=== PATIENT | female | born 1960 | race Two or more races ===

== ENCOUNTER 2018-12-24 10:04 | Outpatient (CLI) | payer OTHER ==
[~2018-12-24 10:04] MED LIST: CIPRO500 MG/5 M PO; FLAGYL500MG PO; INTESTINEX1 CA1 PO; ZANTAC150 MG PO
== END 2018-12-24 10:09 | disposition home or self-care (01) ==
LOC: SONOGRAMA 10:04
DX: E04.1 Nontoxic single thyroid nodule (principal)

== ENCOUNTER 2019-01-12 10:44 | Emergency (ER) | payer OTHER ==
[~2019-01-12] VITALS: Ht 160 cm; Wt 95.3 kg
== END 2019-01-12 14:51 | disposition home or self-care (01) ==
LOC: ER 10:44
DX: M75.51 Bursitis of right shoulder (principal)

== ENCOUNTER 2019-11-11 14:13 | Emergency (ER) | payer OTHER ==
[~2019-11-11] VITALS: Ht 160 cm; Wt 96.6 kg
== END 2019-11-11 18:54 | disposition home or self-care (01) ==
LOC: ER 14:13
DX: T17.228A Food in pharynx causing other injury, initial encounter (principal); M79.5 Residual foreign body in soft tissue; X58.XXXA Exposure to other specified factors, initial encounter; Y93.89 Activity, other specified; Y92.89 Other specified places as the place of occurrence of the external cause; Y99.8 Other external cause status

== ENCOUNTER 2020-03-01 09:45 | Day surgery (SDC) | payer OTHER | END 2020-03-01 15:47 | disposition home or self-care (01) | LOC: AMB-ENDOS 09:45 | PROVIDERS: ATTEND Surgery | DX: K57.32 Diverticulitis of large intestine without perforation or abscess without bleeding (principal); Z20.828 Contact with and (suspected) exposure to other viral communicable diseases ==

== ENCOUNTER → 2020-05-15 | Outpatient (CLI) | payer OTHER | END | disposition home or self-care (01) | LOC: OFIC 805 11:13 | PROVIDERS: ATTEND Otolaryngology Otology & Neurotology | DX: J02.8 Acute pharyngitis due to other specified organisms (principal); T17.298A Other foreign object in pharynx causing other injury, initial encounter; R42 Dizziness and giddiness ==

== ENCOUNTER 2020-12-17 07:20 | Outpatient (CLI) | payer OTHER | END 2020-12-17 07:22 | disposition home or self-care (01) | LOC: TOM 07:20 | PROVIDERS: ATTEND Surgery | DX: K57.32 Diverticulitis of large intestine without perforation or abscess without bleeding (principal); R10.32 Left lower quadrant pain; K56.600 Partial intestinal obstruction, unspecified as to cause ==

== ENCOUNTER 2022-07-31 08:29 | Outpatient (CLI) | payer OTHER | END 2022-07-31 08:32 | disposition home or self-care (01) | LOC: SONOGRAMA 08:29 | PROVIDERS: ATTEND Pathology Anatomic Pathology & Clinical Pathology | DX: D34 Benign neoplasm of thyroid gland (principal); E04.9 Nontoxic goiter, unspecified; R59.1 Generalized enlarged lymph nodes; R22.1 Localized swelling, mass and lump, neck; E04.2 Nontoxic multinodular goiter; D36.0 Benign neoplasm of lymph nodes ==

== ENCOUNTER 2023-08-23 04:59 | Inpatient (IN) | payer OTHER ==
[~2023-08-23] VITALS: Ht 160 cm; Wt 99.8 kg
[2023-08-23] MEDS ORDERED: ATACAND16 MG PO (05:06)
[2023-08-23] MEDS ORDERED: PROMETHAZINE HCL 50 MG/ML AMPUL IM STA (06:36)
[2023-08-23] MEDS ORDERED: KETOROLAC TROMETHAMINE 30 MG VIAL IV STA (06:37)
[2023-08-23] MEDS ORDERED: SODIUM CHLORIDE 0.45 % 1,000 ML IV ONE (06:45)
[2023-08-23 07:57] LABS: PARTIAL THROMBOPLASTIN TIME 27.6 SECONDS (22.0-34.0); PROTHROMBIN TIME 10.5 SECONDS (9.0-11.5)
[2023-08-23 08:07] LABS: HEMATOCRIT 40.8 % (36.0-45.00); MEAN CELL VOLUME 87.9 fL (80.00-100.00); MEAN CORPUSCULAR HEMOGLOBIN 30.3 pg (27.00-32.0); MEAN CORPUSCULAR HGB CONC 34.4 g/dl (32.0-36.0); PLATELET COUNT 283 K/uL (150-450); RED BLOOD COUNT 4.64 M/uL (4.00-6.00)
[2023-08-23 08:31] LABS: BILIRUBIN TOTAL 0.48 mg/dL (0.3-1.2); CALCIUM 9.5 mg/dL (8.5-10.1); CREATININE SERUM 1.32 mg/dL (0.55-1.02); GFR 40.65; GLOBULINA 4.5 G/DL (2.4-3.5); POTASSIUM 4.41 mEq/L (3.5-5.1); TOTAL PROTEIN 8.5 gm/dL (6.4-8.2)
[2023-08-23 09:31] LABS: URINE APPEARANCE Clear; URINE BILIRRUBIN Negative (NEGATIVE); URINE BLOOD Large; URINE COLOR Orange; URINE GLUCOSE Negative (NEGATIVE); URINE LEUKOCYTE Negative; URINE NITRATE Negative; URINE PROTEIN Trace (NEGATIVE); URINE UROBILINOGEN 0.2 E.U./dl
[2023-08-23 09:35] LABS: URINE BACTERIA 40.3 uL (0.0-1933); URINE EPITHELIAL CELLS 4.3 uL (0.0-38.8); URINE RBC 626.1 uL (0.0-20.8); URINE WBC 15.1 uL (0.0-23.2)
[2023-08-23] MEDS ORDERED: CEFTRIAXONE SODIUM 2,000 MG in 0.9 % SODIUM CHLORIDE 100 ML IV SCH (14:44)
[2023-08-23] MEDS ORDERED: FAMOTIDINE/PF 20 MG/2 ML VIAL IV SCH (14:45)
[2023-08-23] MEDS ORDERED: ACETAMINOPHEN 325 MG TABLET PO ONE (14:45)
[2023-08-23] MEDS ORDERED: ONDANSETRON HCL 4 MG in 0.9 % SODIUM CHLORIDE 50 ML IV PRN (14:45)
[2023-08-23] MEDS ORDERED: ACETAMINOPHEN 325 MG TABLET PO PRN (15:00)
[2023-08-23] MEDS ORDERED: 0.9 % SODIUM CHLORIDE 1,000 ML IV SCH (15:00)
[2023-08-23 15:36] LABS: INR 1.03; PARTIAL THROMBOPLASTIN TIME 28.2 SECONDS (22.0-34.0); PROTHROMBIN TIME 10.8 SECONDS (9.0-11.5)
[2023-08-24] MEDS ORDERED: CANDESARTAN CILEXETIL 16 MG TABLET PO SCH ×2 (11:00→11:32)
[2023-08-25 08:05] LABS: HEMATOCRIT 35.3 % (36.0-45.00); HEMOGLOBIN 11.9 g/dL (12.0-15.00); MEAN CORPUSCULAR HEMOGLOBIN 29.7 pg (27.00-32.0); MEAN CORPUSCULAR HGB CONC 33.7 g/dl (32.0-36.0); PLATELET COUNT 213 K/uL (150-450); RED BLOOD COUNT 4.01 M/uL (4.00-6.00); RED CELL DISTRIBUTION WIDTH 13.3 % (11.5-14.5)
[2023-08-25 08:13] LABS: ALBUMIN 3.1 gm/dL (3.4-5.0); BILIRUBIN TOTAL 0.43 mg/dL (0.3-1.2); CALCIUM 8.7 mg/dL (8.5-10.1); CREATININE SERUM 0.77 mg/dL (0.55-1.02); GFR 75.71; GLOBULINA 3.3 G/DL (2.4-3.5); POTASSIUM 4.45 mEq/L (3.5-5.1); TOTAL PROTEIN 6.4 gm/dL (6.4-8.2)
== END 2023-08-25 15:05 | disposition home or self-care (01) | DRG 690 ==
LOC: ER 04:59 → MEDI 14:59
PROVIDERS: General Practice; Student in an Organized Health Care Education/Training Program; ADMIT Internal Medicine; ATTEND Internal Medicine
PROC: BW21ZZZ Computerized Tomography (CT Scan) of Abdomen and Pelvis (ICD-10-PCS; principal; 2023-08-23)
DX: N39.0 Urinary tract infection, site not specified (principal); N20.0 Calculus of kidney; D72.828 Other elevated white blood cell count

== ENCOUNTER 2023-12-22 11:57 | Emergency (ER) | payer OTHER ==
[~2023-12-22] VITALS: Ht 160 cm; Wt 97.5 kg
[~2023-12-22 11:57] MED LIST changes: +ATACAND16 MG PO
[2023-12-22 13:10] LABS: PH,URINE 5.5 (5.0-8.0); URINE APPEARANCE Error; URINE BILIRRUBIN Small (NEGATIVE); URINE BLOOD Large; URINE COLOR Dark Yellow; URINE GLUCOSE Negative (NEGATIVE); URINE LEUKOCYTE Small; URINE NITRATE Negative
[2023-12-22 13:13] LABS: URINE BACTERIA 154.9 uL (0.0-1933); URINE EPITHELIAL CELLS 18.3 uL (0.0-38.8); URINE WBC 49.6 uL (0.0-23.2)
[2023-12-22 13:30] LABS: URINE PROTEIN 100 (NEGATIVE); URINE RBC > 10558.9 uL (0.0-20.8)
[2023-12-22 13:32] LABS: HEMATOCRIT 41.3 % (36.0-45.00); MEAN CELL VOLUME 87.5 fL (80.00-100.00); MEAN CORPUSCULAR HEMOGLOBIN 29.7 pg (27.00-32.0); MEAN CORPUSCULAR HGB CONC 33.9 g/dl (32.0-36.0); PLATELET COUNT 289 K/uL (150-450); RED BLOOD COUNT 4.72 M/uL (4.00-6.00); RED CELL DISTRIBUTION WIDTH 13.7 % (11.5-14.5)
[2023-12-22 13:45] LABS: CALCIUM 10.1 mg/dL (8.5-10.1); CREATININE SERUM 0.93 mg/dL (0.55-1.02); GFR 60.69
== END 2023-12-22 16:40 | disposition home or self-care (01) ==
LOC: ER 11:58
PROVIDERS: General Practice
DX: R31.9 Hematuria, unspecified (principal)
CPT/HCPCS: 36415; 74177; Q9965

== ENCOUNTER 2023-12-26 20:12 | Emergency (ER) | payer OTHER ==
[~2023-12-26] VITALS: Ht 160 cm; Wt 97.5 kg
[2023-12-26] MEDS ORDERED: CIPRO500 MG PO (21:07)
[2023-12-26 21:55] LABS: HEMATOCRIT 39.7 % (36.0-45.00); HEMOGLOBIN 13.8 g/dL (12.0-15.00); MEAN CELL VOLUME 87.5 fL (80.00-100.00); MEAN CORPUSCULAR HEMOGLOBIN 30.3 pg (27.00-32.0); MEAN CORPUSCULAR HGB CONC 34.6 g/dl (32.0-36.0); PLATELET COUNT 273 K/uL (150-450); RED BLOOD COUNT 4.54 M/uL (4.00-6.00); RED CELL DISTRIBUTION WIDTH 13.3 % (11.5-14.5)
[2023-12-26 22:29] LABS: CALCIUM 9.9 mg/dL (8.5-10.1); CREATININE SERUM 0.96 mg/dL (0.55-1.02); GFR 58.51; POTASSIUM 4.06 mEq/L (3.5-5.1)
[2023-12-26 23:20] LABS: URINE APPEARANCE Turbid; URINE BILIRRUBIN Small (NEGATIVE); URINE BLOOD Moderate; URINE COLOR Orange; URINE GLUCOSE Negative (NEGATIVE); URINE KETONE Negative (NEGATIVE); URINE LEUKOCYTE Moderate; URINE NITRATE Positive; URINE UROBILINOGEN 0.2 E.U./dl
[2023-12-26 23:24] LABS: URINE BACTERIA 149.9 uL (0.0-1933); URINE CAST 1.59 uL (0.0-1.40); URINE WBC 168.6 uL (0.0-23.2)
[2023-12-26 23:38] LABS: URINE PROTEIN 100 (NEGATIVE); URINE RBC > 10558.9 uL (0.0-20.8)
[2023-12-26 23:39] LABS: URINE CRYSTALS MODERATE /HPF; URINE MUCUS SCANT
[2023-12-26] MEDS ORDERED: CEFTRIAXONE SODIUM 1,000 MG VIAL IM STA (23:42)
[2023-12-27] MEDS ORDERED: CEFTRIAXONE SODIUM 1,000 MG VIAL ONE (00:01)
== END 2023-12-27 00:14 | disposition home or self-care (01) ==
LOC: ER 20:13
PROVIDERS: General Practice
DX: N39.0 Urinary tract infection, site not specified (principal); R31.9 Hematuria, unspecified

== ENCOUNTER 2024-08-19 07:02 | Outpatient (CLI) | payer OTHER ==
[~2024-08-19 07:02] MED LIST changes: +CIPRO500 MG PO
== END 2024-08-19 07:05 | disposition home or self-care (01) ==
LOC: TOM 07:02
PROVIDERS: ATTEND Surgery
DX: K57.32 Diverticulitis of large intestine without perforation or abscess without bleeding (principal); R10.32 Left lower quadrant pain; K56.609 Unspecified intestinal obstruction, unspecified as to partial versus complete obstruction

== ENCOUNTER 2024-08-22 09:31 | Emergency (ER) | payer OTHER ==
[~2024-08-22] VITALS: Ht 167.6 cm; Wt 98.0 kg
[2024-08-22] MEDS ORDERED: TRAMADOL HCL 50 MG TABLET PO STA (11:49)
== END 2024-08-22 12:05 | disposition home or self-care (01) ==
LOC: ER 09:32
DX: S91.051A Open bite, right ankle, initial encounter (principal); W55.01XA Bitten by cat, initial encounter; Y93.89 Activity, other specified; Y92.89 Other specified places as the place of occurrence of the external cause; Y99.8 Other external cause status

== ENCOUNTER 2024-09-11 08:39 | Inpatient (IN) | payer OTHER ==
[~2024-09-11] VITALS: Ht 160 cm; Wt 96.6 kg
[2024-09-11] MEDS ORDERED: ATACAND16 MG (09:02)
--- NOTE | 2024-09-11 09:02 | NUR ---
PTE ALERTA Y ORIENTADA X3 PTE DE DIVERTICULOS PRESENTA SHAGGY DOLOR PELVICO DESDE LA NOCHE DE NAINA SE LE [place] S/V Y SE UBICA EN HUSAM.
[2024-09-11] MEDS ORDERED: KETOROLAC TROMETHAMINE 30 MG VIAL ONE ×2 (09:12→17:28)
[2024-09-11] MEDS ORDERED: BARIUM SULFATE 450 ML ORAL.SUSP PO ONE (09:13)
[2024-09-11] MEDS ORDERED: 0.9 % SODIUM CHLORIDE 1,000 ML IV SCH ×2 (09:15→19:30)
[2024-09-11] MEDS ORDERED: KETOROLAC TROMETHAMINE 30 MG VIAL IV ONE ×2 (09:15→16:15)
[2024-09-11 09:43] LABS: HEMATOCRIT 39.4 % (36.0-45.00); HEMOGLOBIN 13.3 g/dL (12.0-15.00); MEAN CELL VOLUME 87.7 fL (80.00-100.00); MEAN CORPUSCULAR HEMOGLOBIN 29.5 pg (27.00-32.0); MEAN CORPUSCULAR HGB CONC 33.7 g/dl (32.0-36.0); PLATELET COUNT 236 K/uL (150-450)
[2024-09-11 09:51] LABS: PH,URINE 6.5 (5.0-8.0); URINE APPEARANCE Clear; URINE BILIRRUBIN Negative (NEGATIVE); URINE BLOOD Trace; URINE COLOR Yellow; URINE GLUCOSE Negative (NEGATIVE); URINE KETONE Negative (NEGATIVE); URINE LEUKOCYTE Trace; URINE NITRATE Negative; URINE PROTEIN Negative (NEGATIVE)
[2024-09-11 09:55] LABS: URINE BACTERIA 121.1 uL (0.0-1933); URINE EPITHELIAL CELLS 10.5 uL (0.0-38.8); URINE RBC 22.3 uL (0.0-20.8); URINE WBC 13.7 uL (0.0-23.2)
--- NOTE | 2024-09-11 09:58 | NUR ---
SE EDUCA SOBRE [place] MEDICO, ESTA REFIERE ENTENDER. SE EXTRAEN MUESTRAS DE LABORATORIO Y SE ADMINISTRAN MEDICAMENTOS GIOVANI ORDEN MEDICA. SE HACE ENTREGA DE CONTRASTE PO.
[2024-09-11 10:27] LABS: CALCIUM 9.2 mg/dL (8.5-10.1); CREATININE SERUM 0.8 mg/dL (0.55-1.02); GFR 71.99; POTASSIUM 3.46 mEq/L (3.5-5.1)
[2024-09-11] MEDS ORDERED: CIPROFLOXACIN IN 5 % DEXTROSE 400 MG/200 ML PIGGYBAG IV ONE ×2 (15:25→15:30)
[2024-09-11] MEDS ORDERED: METRONIDAZOLE/SODIUM CHLORIDE 500 MG/100 ML PIGGYBACK IV ONE ×2 (15:25→15:30)
[2024-09-11] MEDS ORDERED: PIPERACILLIN/TAZOBACTAM SODIUM 3.375 GM in DEXTROSE 5 % IN WATER 100 ML IV SCH (19:43)
[2024-09-11] MEDS ORDERED: ACETAMINOPHEN 500 MG GEL..CAP PO PRN (19:45)
[2024-09-11] MEDS ORDERED: ONDANSETRON HCL 4 MG in 0.9 % SODIUM CHLORIDE 50 ML IV PRN (19:45)
[2024-09-11 22:21] LABS: INR 1.12; PROTHROMBIN TIME 12.1 SECONDS (9.0-11.5)
[2024-09-11 23:48] VITALS: BP 127/75; O2SAT 100
[2024-09-12 04:00] VITALS: BP 121/77
[2024-09-12] MEDS ORDERED: MORPHINE SULFATE 4 MG/ML CARTRIDGE IV PRN (04:15)
[2024-09-12 07:55] VITALS: BP 147/77; O2SAT 96
[2024-09-12] MEDS ORDERED: FAMOTIDINE/PF 20 MG in 0.9 % SODIUM CHLORIDE 8 ML IV PUSH SCH (09:00)
[2024-09-12] MEDS ORDERED: CANDESARTAN CILEXETIL 16 MG TABLET PO SCH (09:00)
[2024-09-12] MEDS ORDERED: ENOXAPARIN SODIUM 40 MG/0.4 ML SYRINGE SUBCUTANEO SCH (09:00)
[2024-09-12 14:40] LABS: PH,URINE 5.5 (5.0-8.0); URINE APPEARANCE Clear; URINE BILIRRUBIN Negative (NEGATIVE); URINE BLOOD Negative; URINE COLOR Yellow; URINE GLUCOSE Negative (NEGATIVE); URINE LEUKOCYTE Trace; URINE NITRATE Negative; URINE PROTEIN Negative (NEGATIVE)
[2024-09-12 14:44] LABS: URINE BACTERIA 24.4 uL (0.0-1933); URINE EPITHELIAL CELLS 5.3 uL (0.0-38.8); URINE RBC 3.8 uL (0.0-20.8); URINE WBC 11.2 uL (0.0-23.2)
[2024-09-12 14:45] LABS: URINE KETONE 40 (NEGATIVE)
[2024-09-12 17:42] VITALS: BP 137/82; O2SAT 97
[2024-09-13 00:45] VITALS: BP 156/81
[2024-09-13 07:35] LABS: HEMATOCRIT 33.4 % (36.0-45.00); HEMOGLOBIN 11.6 g/dL (12.0-15.00); MEAN CELL VOLUME 87.1 fL (80.00-100.00); MEAN CORPUSCULAR HEMOGLOBIN 30.3 pg (27.00-32.0); MEAN CORPUSCULAR HGB CONC 34.7 g/dl (32.0-36.0); PLATELET COUNT 197 K/uL (150-450); RED BLOOD COUNT 3.84 M/uL (4.00-6.00); RED CELL DISTRIBUTION WIDTH 13.3 % (11.5-14.5)
[2024-09-13 08:16] LABS: ALBUMIN 2.9 gm/dL (3.4-5.0); BILIRUBIN TOTAL 0.54 mg/dL (0.3-1.2); CALCIUM 8.2 mg/dL (8.5-10.1); CREATININE SERUM 0.52 mg/dL (0.55-1.02); GFR 118.34; GLOBULINA 3.2 G/DL (2.4-3.5); MAGNESIUM 1.8 mg/dL (1.8-2.4); PHOSPHOROUS 2.5 mg/dL (2.5-4.9); POTASSIUM 3.8 mEq/L (3.5-5.1); TOTAL PROTEIN 6.1 gm/dL (6.4-8.2)
[2024-09-13 08:18] LABS: C-REACTIVE PROTEIN 10.5 MG/DL (0.00-0.29)
[2024-09-13 08:37] VITALS: BP 153/67
[2024-09-13 19:14] VITALS: BP 160/76; O2SAT 100
[2024-09-14 01:08] VITALS: BP 160/85; O2SAT 97
[2024-09-14 08:43] VITALS: BP 163/88
[2024-09-14] MEDS ORDERED: SODIUM CHLORIDE 0.45 % 1,000 ML IV SCH (11:15)
[2024-09-14] MEDS ORDERED: PANTOPRAZOLE SODIUM 40 MG/VIAL VIAL IV PUSH NR (11:30)
[2024-09-14] MEDS ORDERED: DEXTROSE 5%-WATER 100ML IV.SOLN ONE (11:59)
[2024-09-14] MEDS ORDERED: PIPERACILLIN/TAZOBACTAM SODIUM 4.5 GM in DEXTROSE 5 % IN WATER 100 ML IV SCH ×2 (12:00→14:00)
[2024-09-14 16:51] VITALS: BP 163/92
[2024-09-15 01:12] VITALS: BP 160/83; O2SAT 95
[2024-09-15 08:14] VITALS: BP 171/82; O2SAT 96
[2024-09-15] MEDS ORDERED: PANTOPRAZOLE SODIUM 40 MG/VIAL VIAL IV PUSH SCH (09:00)
[2024-09-15] MEDS ORDERED: CANDESARTAN CILEXETIL 32 MG TABLET PO SCH (09:00)
[2024-09-15] MEDS ORDERED: CANDESARTAN CILEXETIL 16 MG TABLET PO SCH (09:00)
[2024-09-15 17:06] VITALS: BP 141/84
[2024-09-17 02:37] VITALS: BP 126/77; O2SAT 95
[2024-09-17 08:33] LABS: HEMATOCRIT 36.5 % (36.0-45.00); HEMOGLOBIN 12.5 g/dL (12.0-15.00); MEAN CELL VOLUME 86.5 fL (80.00-100.00); MEAN CORPUSCULAR HEMOGLOBIN 29.7 pg (27.00-32.0); MEAN CORPUSCULAR HGB CONC 34.4 g/dl (32.0-36.0); PLATELET COUNT 257 K/uL (150-450); RED BLOOD COUNT 4.22 M/uL (4.00-6.00); RED CELL DISTRIBUTION WIDTH 13.5 % (11.5-14.5)
[2024-09-17 09:17] VITALS: BP 145/77
[2024-09-17 09:22] LABS: ALBUMIN 3.1 gm/dL (3.4-5.0); BILIRUBIN TOTAL 0.31 mg/dL (0.3-1.2); CALCIUM 9.1 mg/dL (8.5-10.1); CREATININE SERUM 0.59 mg/dL (0.55-1.02); GFR 102.29; GLOBULINA 3.4 G/DL (2.4-3.5); MAGNESIUM 1.5 mg/dL (1.8-2.4); POTASSIUM 3.74 mEq/L (3.5-5.1); TOTAL PROTEIN 6.5 gm/dL (6.4-8.2)
[2024-09-17] MEDS ORDERED: PROTONIX40 MG PO (14:23)
[2024-09-17] MEDS ORDERED: AMOX-CLAV 875-1 EAC1 PO (14:23)
== END 2024-09-17 14:38 | disposition home or self-care (01) | DRG 392 ==
LOC: ER 08:41 → MEDJ 20:34
PROVIDERS: Emergency Medicine; General Practice; Internal Medicine Infectious Disease; ADMIT Internal Medicine; ATTEND Internal Medicine
PROC: BW21YZZ Computerized Tomography (CT Scan) of Abdomen and Pelvis using Other Contrast (ICD-10-PCS; principal; 2024-09-11)
DX: K57.32 Diverticulitis of large intestine without perforation or abscess without bleeding (principal); K90.49 Malabsorption due to intolerance, not elsewhere classified; E87.6 Hypokalemia; D72.829 Elevated white blood cell count, unspecified; K76.0 Fatty (change of) liver, not elsewhere classified; I10 Essential (primary) hypertension

== ENCOUNTER 2025-01-20 10:17 | Outpatient (CLI) | payer OTHER ==
[~2025-01-20 10:17] MED LIST changes: +AMOX-CLAV 875-1 EAC1 PO; +ATACAND16 MG; +PROTONIX40 MG PO
== END 2025-01-20 10:21 | disposition home or self-care (01) ==
LOC: SONOGRAMA 10:17
PROVIDERS: ATTEND Urology
DX: N20.0 Calculus of kidney (principal); N13.30 Unspecified hydronephrosis

== ENCOUNTER 2025-02-13 11:39 | Outpatient (CLI) | payer OTHER | END 2025-02-13 11:47 | disposition home or self-care (01) | LOC: SONOGRAMA 11:39 | PROVIDERS: ATTEND Otolaryngology | DX: E04.2 Nontoxic multinodular goiter (principal) ==

== ENCOUNTER 2025-04-06 08:16 | Outpatient (CLI) | payer OTHER | END 2025-04-06 08:19 | disposition home or self-care (01) | LOC: SONOGRAMA 08:16 | PROVIDERS: ATTEND Pathology Anatomic Pathology & Clinical Pathology | DX: D34 Benign neoplasm of thyroid gland (principal); E07.89 Other specified disorders of thyroid; E04.1 Nontoxic single thyroid nodule ==